=== PATIENT | female | born 1965 | race Caucasian/White ===

== ENCOUNTER → 2017-06-15 | Outpatient (CLI) | payer BC ==
[2017-06-15 13:48] VITALS: BP 99/63; PULSE 72; RESP 16; TEMP 98; BMI 20.5
--- NOTE | 2017-06-15 15:40 | FL ---
EXAMINATION TYPE: FL barium swallow DATE OF EXAM: 06/15/2017 CLINICAL HISTORY: Dysphasia TECHNIQUE: A double contrast esophagram is performed utilizing air and barium. A total of 24 second s of fluoroscopic time was utilized during procedure. 10 images obtained. COMPARISON: None FINDINGS: Again appears to be in normal orientation. There does appear to be a passage of contrast fr om the esophagus freely into the stomach. There is some retention of contrast within the distal esoph lynsey and is somewhat prominent area above the level of the band. A band slippage not excluded. Small area of prolapse or prominent pouch in the differential diagnosis. Projection along the distal margin above the lap band could represent a tiny diverticulum. Ulcer not excluded correlate with dire ct visualization. Case discussed with referring physician. IMPRESSION: 1. No evidence of obstruction or extravasation. 2. Cannot exclude a degree of prolapse. Tiny diverticulum or less likely ulcer above the band level n oted. No prior exams available. Correlate with direct visualization as clinically warranted.
--- NOTE | 2017-06-15 15:51 | P.HPBAR ---
Bariatric H&P - History & Physicial H&P Date: 06/15/17 History & Physicial: Visit/CC: band adj/problems Patient initial contact: Initial weight: 116.12 kg Initial weight in pounds: 256.00 Height: 5 ft 5 in Initial BMI: 42.5 Last weight: Current weight: 55.99 kg Current weight in pounds: 123.44 Current BMI: 20.5 [place] body weight (based on NIH guidelines): 56.699 kg Excess body weight loss: 101.1% The patient is a 51 year-old F who presents for Bariatric Assessment. Patient rents today for lab band follow. She doesn't seen in over 5 years. She is completely to dysphagia. Past Medical History Past Medical History: Thyroid Disorder Additional Past Medical History / Comment(s): hypothyroidism History of Any Multi-Drug Resistant Organisms: None Reported Past Surgical History: Bariatric Surgery Additional Past Surgical History / Comment(s): lap band. panniculectomy Past Anesthesia/Blood Transfusion Reactions: No Reported Reaction Past Psychological History: Anxiety Smoking Status: Current every day smoker Past Alcohol Use History: None Reported Additional Past Alcohol Use History / Comment(s): 1pk/day x 33 years Additional Drug Use History / Comment(s): occasional recreational marijuana Surgical - Exam Vital Signs Temp Pulse Resp BP 98.0 F 72 16 99/63 06/15/17 13:25 06/15/17 13:25 06/15/17 13:25 06/15/17 13:25 - General well developed, cachectic - Eyes PERRL - ENT normal pinna - Respiratory normal expansion - Cardiovascular Rhythm: regular - Abdomen Abdomen: soft, non tender Bariatric Assessment & Plan Plan: Andrei patient's LAP-BAND was emptied. She had 2.5 mL removed from her band. The patient was scheduled for an esophagram. There is questionable prolapse the band. Patient will follow-up in one week. Bariatric Checklist Checklist: Plan: Checklist: EGD: 1. Hiatal hernia: 2. H. Pylori: HgbA1c: Vitamin D: Smoking: Current every day smoker Primary care physician referral: Psychiatry clearance: Cardiology clearance: Sleep study: Diet journal: VTE risk score: VTE risk level: Rehab needs at discharge:
== END | disposition home or self-care (01) ==
LOC: BARWHC3 13:00
PROVIDERS: ATTEND Surgery
DX: Z48.815 Encounter for surgical aftercare following surgery on the digestive system (principal); R13.10 Dysphagia, unspecified; F17.200 Nicotine dependence, unspecified, uncomplicated; Z98.84 Bariatric surgery status; Z68.20 Body mass index [BMI] 20.0-20.9, adult
CPT/HCPCS: 74220; 99212

== ENCOUNTER → 2018-02-15 | Outpatient (CLI) | payer BC ==
[2018-02-15 13:30] VITALS: BP 116/71; PULSE 82; RESP 16; TEMP 98; BMI 34.6
--- NOTE | 2018-02-16 12:30 | P.HPBAR ---
Bariatric H&P - History & Physicial H&P Date: 02/15/18 History & Physicial: Visit/CC: band adj Patient initial contact: Initial weight: 116.12 kg Initial weight in pounds: 256.00 Height: 5 ft 5 in Initial BMI: 42.5 Last weight: Current weight: 94.347 kg Current weight in pounds: 208.00 Current BMI: 34.6 [place] body weight (based on NIH guidelines): 56.699 kg Excess body weight loss: 36.6% The patient is a 52 year-old F who presents for Bariatric Assessment. Patient presents today for her LAP-BAND adjustment. She is requesting a fill of her LAP -BAND. She currently feels hungry. Past Medical History Past Medical History: Thyroid Disorder Additional Past Medical History / Comment(s): hypothyroidism History of Any Multi-Drug Resistant Organisms: None Reported Past Surgical History: Bariatric Surgery Additional Past Surgical History / Comment(s): lap band. panniculectomy Past Anesthesia/Blood Transfusion Reactions: No Reported Reaction Past Psychological History: Anxiety Additional Psychological History / Comment(s): Takes Xanax 0.5mg as directed Smoking Status: Current every day smoker Past Alcohol Use History: None Reported Additional Past Alcohol Use History / Comment(s): 1pk/day x 33 years Additional Drug Use History / Comment(s): occasional recreational marijuana, uses CBD (Cannabinoid) Oil Surgical - Exam Vital Signs Temp Pulse Resp BP 98.0 F 82 16 116/71 02/15/18 13:27 02/15/18 13:27 02/15/18 13:27 02/15/18 13:27 - General well developed, no distress - Eyes PERRL - ENT normal pinna - Respiratory normal expansion - Abdomen Abdomen: soft, non tender Bariatric Assessment & Plan Plan: Patient's lap incision was she had 1 mL added to her band. She was ill drink water without difficulty. She'll follow-up in 4 weeks. Bariatric Checklist Checklist: Plan: Checklist: EGD: 1. Hiatal hernia: 2. H. Pylori: HgbA1c: Vitamin D: Smoking: Current every day smoker Primary care physician referral: Psychiatry clearance: Cardiology clearance: Sleep study: Diet journal: VTE risk score: VTE risk level: Rehab needs at discharge:
== END | disposition home or self-care (01) ==
LOC: BARWHC3 12:59
PROVIDERS: ATTEND Surgery
DX: Z48.815 Encounter for surgical aftercare following surgery on the digestive system (principal); F17.200 Nicotine dependence, unspecified, uncomplicated
CPT/HCPCS: 99212

== ENCOUNTER → 2018-11-22 | Outpatient (CLI) | payer BC ==
[2018-11-22 15:49] VITALS: BP 142/91; PULSE 78; TEMP 97.8; BMI 37.9
--- NOTE | 2018-11-26 13:31 | P.HPBAR ---
Bariatric H&P - History & Physicial H&P Date: 11/26/18 History & Physicial: Visit/CC: lap band follow up Patient initial contact: Initial weight: 116.12 kg Initial weight in pounds: 256.00 Height: 5 ft 5 in Initial BMI: 42.5 Last weight: Current weight: 103.419 kg Current weight in pounds: 228.00 Current BMI: 37.9 [place] body weight (based on NIH guidelines): 56.699 kg Excess body weight loss: 21.3% The patient is a 53 year-old F who presents for Bariatric Assessment. Patient presents today for lab band follow up. She currently is hungry. She is requesting a fill of her band. Past Medical History Past Medical History: Thyroid Disorder Additional Past Medical History / Comment(s): hypothyroidism History of Any Multi-Drug Resistant Organisms: None Reported Past Surgical History: Bariatric Surgery Additional Past Surgical History / Comment(s): lap band. panniculectomy Past Anesthesia/Blood Transfusion Reactions: No Reported Reaction Past Psychological History: Anxiety Additional Psychological History / Comment(s): Takes Xanax 0.5mg as directed Smoking Status: Current every day smoker Past Alcohol Use History: None Reported Additional Past Alcohol Use History / Comment(s): 1pk/day x 33 years Additional Drug Use History / Comment(s): occasional recreational marijuana, uses CBD (Cannabinoid) Oil Surgical - Exam Vital Signs Temp Pulse BP 97.8 F 78 142/91 11/22/18 15:42 11/22/18 15:42 11/22/18 15:42 - General well developed, well nourished - Abdomen Abdomen: soft, non tender Bariatric Assessment & Plan Plan: Patient's lap band was adjusted. She had 1 mL added to her band. She is able drink water without difficulty. She'll follow-up in 4 weeks. Bariatric Checklist Checklist: Plan: Checklist: EGD: 1. Hiatal hernia: 2. H. Pylori: HgbA1c: Vitamin D: Smoking: Current every day smoker Primary care physician referral: Psychiatry clearance: Cardiology clearance: Sleep study: Diet journal: VTE risk score: VTE risk level: Rehab needs at discharge:
== END | disposition home or self-care (01) ==
LOC: BARWHC3 13:56
PROVIDERS: ATTEND Surgery
DX: Z46.51 Encounter for fitting and adjustment of gastric lap band (principal); F17.200 Nicotine dependence, unspecified, uncomplicated
CPT/HCPCS: 99212